=== PATIENT | male | born 2000 | race Caucasian/White ===

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

== ENCOUNTER 2021-09-17 11:15 | Observation (INO) | payer SELFPAY ==
[2021-09-17] VITALS (7 sets, daily range): BP systolic 114–149; BP diastolic 60–84; PULSE 69–95; TEMP 98–101.5
[~2021-09-17] VITALS: Ht 182.9 cm; Wt 71.5 kg
[~2021-09-17 11:15] MED LIST changes: +DOXYCYCLINE 10100 MG PO
[2021-09-17 12:04] LABS: BASO % 0.2 % (0.0-2.0); EOS % 0.3 % (0-4.0); GRAN # 12.2 K/mm3 (1.4-6.5); GRAN % 84.4 % (42.2-75.2); HEMATOCRIT 46.4 % (36.0-47.0); HEMOGLOBIN 15.7 g/dl (12.5-16.1); LYMPH % 6.7 % (20.0-51.0); MEAN CELL VOLUME 90 fl (80.0-95.0); MEAN CORPUSCULAR HEMOGLOBIN 30 pg (26.0-32.0); MEAN CORPUSCULAR HGB CONC 34 g/dl (33.0-37.0); MEAN PLATELET VOLUME 10.2 fl (7.4-10.4); MONO # 1.2 K/mm3 (0.1-0.6); MONO % 8.1 % (1.7-9.3); PLATELET COUNT 335 K/mm3 (130-400); RED BLOOD COUNT 5.16 M/mm3 (4.20-5.60); REDCELL DISTRIBUTION WIDTH-CV 12.8 % (11.5-14.5)
[2021-09-17 12:26] LABS: ALBUMIN 3.9 gm/dL (3.5-5.0); BILIRUBIN,TOTAL 0.8 mg/dL (0.2-1.2); C-REACTIVE PROTEIN 26.15 mg/dL (0.00-0.50); CREATININE, serum 1.01 mg/dL (0.72-1.25); POTASSIUM 3.7 mmol/L (3.5-4.5); TOTAL PROTEIN 8.8 gm/dL (6.2-8.1)
[2021-09-17 15:40] LABS: COLLECTION METHOD CLEAN CATCH
[2021-09-17 15:47] LABS: MUCOUS Present /lpf; PH 7 (5-8); SQUAMOUS EPITHELIAL 0-2 /hpf; URINE APPEARANCE Clear; URINE BACTERIA None Seen /hpf; URINE BILIRUBIN Negative (NEGATIVE); URINE BLOOD Negative (NEGATIVE); URINE COLOR Yellow; URINE GLUCOSE Negative (NEGATIVE); URINE KETONE 2+ (NEGATIVE); URINE LEUKOCYTE ESTERASE Negative (NEGATIVE); URINE NITRATE Negative (NEGATIVE); URINE PROTEIN(semi-quant) Negative (NEGATIVE); URINE UROBILINOGEN Negative (NEGATIVE)
--- NOTE | 2021-09-17 18:27 | NUR ---
Patient admitted to 322. admission paperwrok completed. He remains Npo for surgery. Patient Cipro started per orders. Consent obtained per orders. Patient taken to [facility] with Stephenie Pacu nurse.
--- NOTE | 2021-09-17 22:58 | NUR ---
RETURNED FROM PACU POST DEBBIE. 3 BANDAIDES TO ABD C/D/I. RATING PAIN 01/10. TOLERATING LIQIDS,ADV DIET SEN TONIGHT. POSTOP VITALS INITATED. FLUIDS RUNNING. SCD ON FOR VTE. POC DISCUSSED. CALL LIGHT WI REACH.
[2021-09-18 00:01] VITALS: BP 122/72; PULSE 69
[2021-09-18 05:18] VITALS: BP 117/74; PULSE 55
--- NOTE | 2021-09-18 05:22 | NUR ---
PT RESTED THROUGH THE NIGHT. UP TO VOID. PAIN CONTROLLED W NORCO.
[2021-09-18] MEDS ORDERED: NORCO 325 MG-51 TAB PO (07:08)
[2021-09-18 08:00] VITALS: BP 128/74; PULSE 63; TEMP 98.1
--- NOTE | 2021-09-18 08:10 | NUR ---
PT DOING WELL. IN TO SEE PT THIS AM. PLAN ON DISCHARGE LATER THIS AM. PT INDEPENDENT IN ROOM. BANDAIDS TO ABD CDI. PT DENIES NEEDS AT THIS TIME.
--- NOTE | 2021-09-18 09:28 | NUR ---
Initial visit; Patient thanked Alkylation Operator for looking in on him, wishing him well and offering God's blessings and to keep him in her prayers.
--- NOTE | 2021-09-18 09:35 | NUR ---
SONAL met with the patient and his step-father, Haider (ph#[phone]), to discuss discharge plan. The patient lives in [place] with his parents: Haider and Xiao. He reports independence with ADLs and does not have any DME. The patient's primary care provide is Ines Iyer PA-C and he receives his [facility] in . He reports having difficulties affording his meds. The patient confirms that he is self pay. He reports that he did receive an FAA. The patient's step-father reports that they will be able to afford and pay for the patient's meds upon discharge. The patient does not have a DPOA-HC, but he was interested in obtaining a form. SONAL provided the form. The patient is not and does not have any children. His parents are his next of kin. The patient plans to return home with his parents upon discharge. No additional needs at this time. *Discharge plan: home with parents*
--- NOTE | 2021-09-18 10:45 | NUR ---
DISCHARGE INSTRUCTIONS REVIEWED WITH PT AND FAMILY. PT VERBALIZED UNDERSTANDING.PT LEFT UNIT IN WHEEL CHAIR.
== END 2021-09-18 10:47 | disposition home or self-care (01) ==
LOC: COL.ER 11:15 → SURG 15:32
PROVIDERS: Nurse Practitioner Primary Care; ADMIT Surgery
DX: K80.01 Calculus of gallbladder with acute cholecystitis with obstruction (principal); K82.A1 Gangrene of gallbladder in cholecystitis; Z79.899 Other long term (current) drug therapy
CPT/HCPCS: G0378; J0744; J1100; J1170; J1885; J2405; J2704; J3010; J7030; Q9967